=== PATIENT | female | born 1950 | race Caucasian/White ===

== ENCOUNTER → 2016-08-28 | Outpatient (CLI) | payer MEDICARE ==
[~2016-08-28] MED LIST: ASPI-496 PO; ATOR40TA78 PO; INDA1.25 PO; LISI30TA4 PO; METF10002 PO; MULT1TAB9 PO; OMEG-76 PO; OMNIPAQUE 350 MG/ML, 100ML BOTTLE ONE; VERA180T56 PO; VIT1TABL32 PO
== END | disposition home or self-care (01) ==
LOC: CFH 09:42
PROVIDERS: ATTEND Specialist
DX: C54.1 Malignant neoplasm of endometrium (principal); K76.0 Fatty (change of) liver, not elsewhere classified; Z90.710 Acquired absence of both cervix and uterus; M51.36 Other intervertebral disc degeneration, lumbar region
CPT/HCPCS: 74177; Q9967

== ENCOUNTER 2016-09-18 09:23 | Outpatient (CLI) | payer MEDICARE ==
[~2016-09-18 09:23] MED LIST changes: -OMNIPAQUE 350 MG/ML, 100ML BOTTLE ONE
== END 2016-09-18 09:27 | disposition home or self-care (01) ==
LOC: ROC 09:23
PROVIDERS: ATTEND Radiology Radiation Oncology
DX: Z02.9 Encounter for administrative examinations, unspecified (principal)

== ENCOUNTER → 2016-11-08 | Outpatient (CLI) | payer MEDICARE, OTHER | LOC: ROC 15:34 | PROVIDERS: ATTEND Radiology Radiation Oncology | DX: Z02.9 Encounter for administrative examinations, unspecified (principal) ==

== ENCOUNTER → 2017-01-08 | Outpatient (CLI) | payer MEDICARE | END | disposition home or self-care (01) | LOC: EDSTATUS 11-10 15:15 → ROC 15:16 | PROVIDERS: ATTEND Radiology Radiation Oncology | DX: C54.1 Malignant neoplasm of endometrium (principal); Z88.2 Allergy status to sulfonamides; Z79.899 Other long term (current) drug therapy | CPT/HCPCS: G0463 ==

== ENCOUNTER → 2017-07-23 | Outpatient (CLI) | payer MEDICARE | END | disposition home or self-care (01) | LOC: ROC 11:05 | PROVIDERS: ATTEND Radiology Radiation Oncology | DX: C54.1 Malignant neoplasm of endometrium (principal) | CPT/HCPCS: G0463 ==

== ENCOUNTER → 2018-01-29 | Outpatient (CLI) | payer MEDICARE ==
[2018-01-29 15:59] LABS: ANION GAP 11 mmol/L (5-15); CALCIUM 9.4 mg/dL (8.5-10.1); CHLORIDE 104 mmol/L (98-107); CREATININE 1.34 mg/dL (0.55-1.02)
== END | disposition home or self-care (01) ==
LOC: CFH 12:59
PROVIDERS: ATTEND Anesthesiology
DX: Z01.810 Encounter for preprocedural cardiovascular examination (principal); E11.9 Type 2 diabetes mellitus without complications; C54.1 Malignant neoplasm of endometrium; Z88.2 Allergy status to sulfonamides
CPT/HCPCS: 36415; 80048

== ENCOUNTER → 2018-10-17 | Outpatient (CLI) | payer MEDICARE ==
[~2018-10-17] MED LIST changes: -VERA180T56 PO; +VERA180T6 PO
== END | disposition home or self-care (01) ==
LOC: RAD 15:48
PROVIDERS: ATTEND Family Medicine
DX: M25.562 Pain in left knee (principal)

== ENCOUNTER 2019-09-11 13:19 | Emergency (ER) | payer MEDICARE ==
[~2019-09-11] VITALS: Ht 165.1 cm; Wt 84.2 kg
[2019-09-11] MEDS ORDERED: DIPH,PERTUSS(ACELL),TET VAC/PF 0.5 ML IM-VACC ONE ×2 (14:30→15:22)
[2019-09-11 15:52] VITALS: BP 126/56
--- NOTE | 2019-09-11 16:04 | NUR ---
pt presents to ED s/p mechanical GLF last night, pt states she was going to bathroom, tripped and fell. denies syncope. Lac to lip cleaned/dressed by EDT, reassessed by SOCORRO Quinn. Pt medicated with tdap vaccine per emar, given tdap educational sheet. pt is a&o, resps even and unlabored, neuro intact. awaiting dc orders/paperwork at this time.
== END 2019-09-11 16:30 | disposition home or self-care (01) ==
LOC: ED 13:59
DX: S01.511A Laceration without foreign body of lip, initial encounter (principal); E11.9 Type 2 diabetes mellitus without complications; W01.0XXA Fall on same level from slipping, tripping and stumbling without subsequent striking against object, initial encounter; Y92.009 Unspecified place in unspecified non-institutional (private) residence as the place of occurrence of the external cause; Y93.89 Activity, other specified; Y99.8 Other external cause status
CPT/HCPCS: 90471; 90715; 99283

== ENCOUNTER 2019-09-12 15:46 | Emergency (ER) | payer MEDICARE ==
[~2019-09-12] VITALS: Ht 165.1 cm; Wt 84.0 kg
--- NOTE | 2019-09-12 16:34 | NUR ---
RN IN TO ASSESS PATIENT, ALREADY SEEN AND DISCHARGED BY MD. PT GIVEN DISCHARGE INSTRUCTIONS WITH ONE PRESCRIPTION FOR KEFLEX. PT INSTRUCTED ON USE OF KEFLEX, TO INCLUDE SIDE EFFECTS. PT INSTRUCTED ON USE OF STERI STRIPS THAT WERE APPLIED TO THE ABCESS ON HER LEFT UPPER LIP. PT VERBALIZES UNDERSTANDING OF ALL INSTRUCTIONS. PT AMBULATED OUT OF ED WITHOUT DIFF.
[2019-09-12 16:36] VITALS: BP 142/76
== END 2019-09-12 16:38 | disposition home or self-care (01) ==
LOC: ED 16:00
DX: K13.0 Diseases of lips (principal); E11.9 Type 2 diabetes mellitus without complications
CPT/HCPCS: 99283